=== PATIENT | female | born 1950 | race Caucasian/White ===

== ENCOUNTER → 2020-02-24 17:50 | Outpatient (CLI) | payer MEDICARE, SELFPAY ==
--- NOTE | 2020-02-24 18:15 | MRI_ITS ---
STUDY: MRI LUMBAR SPINE WITHOUT CONTRAST REASON FOR EXAM: Female, 70 years old. Low back pain and right hip pain and right leg pain, prior surgeries TECHNIQUE: Standardized fat and water weighted pulse sequences were obtained in the sagittal and axial planes. COMPARISON: None FINDINGS: Lumbar spine is intact and aligned with normal marrow, paraspinous soft tissues and SI joints. There is L4-L5 dorsal pedicular fusion and L3-L4, L4-L5 laminotomy decompression. For details of hardware refer to CT. Conus medullaris terminates at T12-L1. Cauda equina is restricted at L2-L3. T12-L1 has a disc bulge and central disc extrusion with inferior migration of disc material without neural compression. Thecal sac is patent. L2-L3 has moderate spondylotic thecal sac stenosis. Remainder of the levels have patent thecal sac which is fully decompressed at the surgical levels. There is bilateral L5-S1 lateral recess stenosis. There is multilevel mild scattered foraminal stenosis. MRI/Spine Lumbar (Routine) IMPRESSION: 1. L3-L4 moderate spondylotic thecal sac stenosis. 2. Expected appearance of decompressed and fused L4-L5. Electronically Signed: Funmi Juarez, at 19:03 EDT Tel , Service support ,
== END ==
PROVIDERS: PCP Internal Medicine; Referring Provider Anesthesiology Pain Medicine; Visit Provider Anesthesiology Pain Medicine
DX: M54.9 Dorsalgia, unspecified (principal); M79.606 Pain in leg, unspecified
CPT/HCPCS: 72148

== ENCOUNTER 2021-07-11 18:25 | Outpatient (CLI) | payer MEDICARE, SELFPAY ==
[2021-07-11 19:55] LABS: Amphetamine Urine VISTA NEGATIVE (<1000 ng/mL); Barbiturate Urine VISTA NEGATIVE (< 200 ng/mL); Benzodiazepine Urine VISTA NEGATIVE (< 200 ng/mL); Cocaine Urine VISTA NEGATIVE (< 300 ng/mL); Ecstacy Urine VISTA POSITIVE (< 500 ng/mL); Methadone Urine VISTA NEGATIVE (< 300 ng/mL); PCP Urine VISTA NEGATIVE (< 25 ng/mL); THC Urine VISTA NEGATIVE (< 50 ng/mL); Vista UDS pH Range 6
== END 2021-07-11 23:59 | disposition short-term general hospital (02) ==
PROVIDERS: PCP Internal Medicine; Visit Provider Anesthesiology Pain Medicine
DX: F11.20 Opioid dependence, uncomplicated (principal)
CPT/HCPCS: 80307